=== PATIENT | female | born 1965 | race Caucasian/White ===

== ENCOUNTER 2022-04-28 10:11 | Outpatient (CLI) | payer OTHER, SELFPAY ==
--- NOTE | 2022-04-28 10:15 | CRLHL7_ITS ---
For Patients: As a result of the Century Cures Act, medical imaging exams and procedure reports are released immediately into your electronic medical record. You may view this report before your referring provider. If you have questions, please contact your health care provider. INDICATION: POSTMENOPAUSAL BLEEDING COMPARISON: none TECHNIQUE: 2D brantley scale and color Doppler images were acquired of the pelvis using a transabdominal and transvaginal approach. FINDINGS: Sonographic images demonstrate a normal size and smooth outer contour of the uterus. Uterus measures 8.4 cm in length by 3.7 cm in AP diameter by 4.4 cm in transverse dimension. The myometrium has a heterogeneous echotexture. The endometrial lining measures 5 mm in composite thickness. The right ovary measures 3.4 x 1.7 x 2.3 cm in size and the left ovary is not visualized. The right ovary demonstrated normal arterial and venous blood flow on color Doppler analysis. There are no suspicious fluid collections within the cul-de-sac. IMPRESSION: Endometrial thickness measures 5 mm. Dictated by Roosevelt Giles MD @ 04/28/2022 11:38:13 AM (Electronically Signed)
== END 2022-04-28 10:12 | disposition home or self-care (01) ==
LOC: US 10:12
PROVIDERS: PCP Family Medicine; Visit Provider Internal Medicine Endocrinology, Diabetes & Metabolism
DX: N95.0 Postmenopausal bleeding (principal); R93.89 Abnormal findings on diagnostic imaging of other specified body structures
CPT/HCPCS: 76830; 76856